=== PATIENT | female | born 1965 | race Caucasian/White ===

== ENCOUNTER 2016-12-09 07:29 | Day surgery (SDC) | payer MEDICARE ==
[~2016-12-09 07:29] MED LIST: ADDERALL 15 MG15 MG PO; ADDERALL 30 MG30 M1 PO; ADDERALL 30 MG30 MG PO; ADVAIR; ADVAIR HFA 115-12 G1 IH; ALBUTEROL0.83 MG/ML INH; ALPRAZOLAM0.25 MG PO; AMITRIPTYLINE H25 M1 PO; AMPHETAMINE SAL30 M1 PO; ASPIR 8181 M1 PO; AUGMENTIN 875-1 EAC2 PO; AZITHROMYCIN250 MG PO; B122500 MCG SL; BENADRYL25 M3 PO; BENADRYL25 MG PO; BENADRYL25 MG/TA1 PO; CALCIUM CH1 TAB.CHE PO; CALCIUM500 M1 PO; CELEXA20 MG PO; CELEXA40 MG PO; CHILDREN'S ASPI81 M1 PO; CLARITIN10 M6 PO; CLEOCIN HCL300 MG PO; CRESTOR10 MG PO; DEMADEX20 M1 PO; EPIPEN AUTO-INJE1 EA IM; EPIPEN0.3 MG/0.1 IM; EPIPEN0.3 MG/0.3 IM; FOCALIN PO; IRON325 MG PO; K-DUR20 MEQ/TA1 PO; KLOR-CON M2020 MEQ PO; LAMICTAL25 M2 PO; LAMISIL250 MG PO; LASIX20 MG PO; LISINOPRIL-HCTZ1 TAB PO; LORAZEPAM0.5 MG PO; METHYLPREDNISOLO8 MG PO; METOPROLOL TART25 M1 PO; MULTIVITAMIN1 TAB PO; NICORETTE4 M1 BC; NICOTINE BC; NORCO 5/325 TAB1 TAB PO; NUVIGIL250 M1 PO; OMEPRAZOLE20 MG PO; PLAVIX75 MG PO; POTASSIUM CHLO10 MEQ PO; PREDNISONE10 MG PO; PREDNISONE20 M1 PO; PREDNISONE20 MG PO; PREDNISONE5 MG PO; PREVACID15 M1 PO; PRIMATENE ASTH1 EACH PO; PULMICORT180 MCG/AE IH; RANITIDINE HCL75 MG PO; RITALIN10 MG PO; SERTRALINE HCL25 M3 PO; SIMVASTATIN20 MG PO; SINGULAIR10 MG PO; SPIRIVA18 MCG IH; STRATTERA40 MG/CAP PO; STRATTERA80 M1 PO; SULFAMETHOXAZOL PO; TOPROL XL25 M1 PO; VENTOLIN HFA18 GM IH; VISTARIL50 M1 PO; VITAMIN B121000 MCG PO; VITAMIN B122500 MCG PO; VITAMIN D31000 UNI2 PO; WELLBUTRIN XL150 M1 PO; XYREM500 MG/1 M PO; ZANTAC300 M1 PO; ZESTORETIC 10-1 EACH PO; ZINC15 M1 PO; ZOFRAN4 M2 PO; ZOVIRAX800 MG PO; ZYRTEC10 M1 PO; ZYRTEC1010 PO; [UNRECOGNIZED DRUG - CODE] PO; [UNRECOGNIZED DRUG - OTHER] BC; [UNRECOGNIZED DRUG - OTHER] PO
[2016-12-09 08:11] LABS: BASO % 0.7 % (0-2); EOS % 3.3 % (0-7); EOSINOPHIL ABSOLUTE COUNT 0.1 tho/cmm (0.0-0.7); LYMPH % 42.7 % (20-45); LYMPH ABSOLUTE COUNT 1.3 tho/cmm (0.8-4.5); MCH (MEAN CORPUSCULAR HGB) 29.1 pg (28.0-32.0); MCHC MEAN CORPUSCULAR HGB CONC 32.3 % (32.0-36.0); MCV (MEAN CELL VOLUME) 90.1 fl (82.0-96.0); MEAN PLATELET VOLUME 10.1 cmc (9.4-12.4); MONOCYTE ABSOLUTE COUNT 0.2 tho/cmm (0.0-1.2); NEUTROPHIL ABSOLUTE COUNT 1.4 tho/cmm (1.6-8.0); NEUTROPHIL-AUTOMATED 1.4 tho/cmm (1.6-8.0); NEUTROPHILS % 46.3 % (40-80); PLATELET COUNT 223 tho/cmm (150-450); RED BLOOD COUNT 3.44 mil/cmm (4.00-5.20); RED CELL DISTRIBUTION WIDTH 13.2 % (12.4-16.4)
[2016-12-09 08:28] LABS: ANION GAP 11 mmol/L (0-20); BLOOD UREA NITROGEN 11 mg/dl (6-24); CALCIUM 8.6 mg/dl (8.5-10.5); CARBON DIOXIDE-VENOUS 31 mmol/L (22-32); CHLORIDE 102 mmol/l (96-110); CREATININE 0.82 mg/dl (0.50-1.10); GLUCOSE 90 mg/dL (70-110); POTASSIUM 4.3 mmol/L (3.7-5.1); SODIUM 140 mmol/L (135-145); eGFR VALUE FOR BLACK >90 mL/Min
== END 2016-12-09 11:05 ==
LOC: ENDOS 07:29 → SHSC 07:32 → ENDOS 09:07
PROVIDERS: Anesthesiology
PROC: 0DJD8ZZ Inspection of Lower Intestinal Tract, Via Natural or Artificial Opening Endoscopic (ICD-10-PCS; principal; 2016-12-09)
PROC: 0DJ08ZZ Inspection of Upper Intestinal Tract, Via Natural or Artificial Opening Endoscopic (ICD-10-PCS; 2016-12-09)
DX: Z12.11 Encounter for screening for malignant neoplasm of colon (principal); I10 Essential (primary) hypertension; I73.9 Peripheral vascular disease, unspecified; F32.9 Major depressive disorder, single episode, unspecified; G47.419 Narcolepsy without cataplexy; I07.1 Rheumatic tricuspid insufficiency; Z87.891 Personal history of nicotine dependence; Z88.8 Allergy status to other drugs, medicaments and biological substances; Z79.899 Other long term (current) drug therapy; Z98.890 Other specified postprocedural states; Z98.84 Bariatric surgery status